=== PATIENT | male | born 1965 | race Caucasian/White ===

== ENCOUNTER 2016-12-24 19:08 | Emergency (ER) | payer MEDICAID ==
--- NOTE | 2016-12-24 19:35 | ED Physician Chart ---
Chief Complaint/HPI - Patient Information Date Seen:: 12/24/16 Time Seen:: 19:11 Chief Complaint:: SUICIDAL IDEATION History of Present Illness:: THIS IS A 51 YO MALE BIB THE [facility] AND PLACED ON A 5150 BECAUSE AT ONE POINT HE TOLD THE EMS THAT HE WANT ED KILL HIMSELF. HIS CLAIMED THAT HE MIGHT HAVE TAKEN SOME OF THE PSYCH MEDS THAT HE USUALLY TAKES. THE PATIENT DENIED ANY PREVIOUS PSYCH CARE. THE DENIES ALL OTHER MEDICAL PROBLEMS. Allergies:: Allergies Allergy/AdvReac Type Severity Reaction Status Date / Time No Known Allergies Allergy Verified 12/24/16 19:17 THIS IS A [age] BIB [facility] AND EMS WITH A STORY OF HIM AT FIRST SAYING HE WAS SUICIDAL AND LATER DENIES BEING SUICIDAL. HE CLAIMS THAT HE TOOK SEVERAL MEDS AND HIS STATES THAT HE DID NOT. THE PATIENT DENIES HAVING PSYCH PROBLEMS IN THE PAST. HE DENIES ALL MEDICAL PROBLEMS. Vitals:: Vital Signs - 8 hr 12/24/16 19:10 Temp 98.1 F HR 71 RR 18 BP 171/109 O2 Sat % 94 Historian:: Patient, EMS Review:: Nurse's Note Reviewed Review of Systems - Review of Systems General/Constitutional: No fever, No chills, No weight loss, No weakness, No diaphoresis, No edema, No loss of appetite, Other (NOT ABLE TO GIVE A REVIEW OF SYSTEMS.) Skin: No skin lesions, No rash, No bruising Head: No headache, No light-headedness Eyes: No loss of vision, No pain, No diplopia ENT: No earache, No nasal drainage, No sore throat, No tinnitus Neck: No neck pain, No swelling, No thyromegaly, No stiffness, No mass noted Cardio Vascular: No chest pain, No palpitations, No PND, No orthopnea, No edema Pulmonary: No SOB, No cough, No sputum, No wheezing GI: No nausea, No vomiting, No diarrhea, No pain, No melena, No hematochezia, No constipation, No hematemesis G/U: No dysuria, No frequency, No hematuria Musculoskeletal: No bone or joint pain, No back pain, No muscle pain Endocrine: No polyuria, No polydipsia Psychiatric: No prior psych history, No depression, No anxiety, No suicidal ideation Hematopoietic: No bruising, No lymphadenopathy Allergic/Immuno: No urticaria, No angioedema Neurological: No syncope, No focal symptoms, No weakness, No paresthesia, No headache, No seizure, No dizziness, No confusion, No vertigo Past Medical History - Past Medical History Obtainable: Yes (HISTORY NOT RELIABLE) Family History: None Social History: Non Smoker, No Alcohol, No Drug Use Surgical History: None Psychiatricy History: Other (HE TAKES PSYCH MEDS BUT DENIES ANY PREVIOUS CARE.) Family Medical History - Family Member Mother History Unknown: Yes Physical Exam - Physical Examination General/Constitutional: Awake, Well-developed, well-nourished, Alert, No distress, GCS 15, Non-toxic appearing, Ambulatory Head: Atraumatic Eyes: Lids, conjuctiva normal, PERRL, EOMI Skin: Nl inspection, No rash, No skin lesions, No ecchymosis, Well hydrated, No lymphadenopathy ENMT: External ears, nose nl, Nasal exam nl, Lips, teeth, gums nl Neck: Nontender, Full ROM w/o pain, No JVD, No nuchal rigidity, No bruit, No mass, No stridor Respiratory: Nl effort/Exclusion, Clear to Auscultation, No Wheeze/Rhonchi/Rales Cardio Vascular: RRR, No murmur, gallop, rubs, NL S1 S2 GI: No tenderness/rebounding/guarding, No organomegaly, No hernia, Normal BS's, Nondistended, No mass/bruits, No McBurney tenderness : No CVA tenderness Extremities: No tenderness or effusion, Full ROM, normal strength in all extremities, No edema, Normal digits & nails Neuro/Psych: Alert/oriented, DTR's symmetric, Normal sensory exam, Normal motor strength, Judgement/insight normal, Mood normal, Normal gait, No focal deficits Misc: normal gait, Normal back, No paraspinal tenderness Labs/Radiology/EKG Results - Lab Results Results: Abnormal Lab Results 12/24/16 12/24/16 12/24/16 19:37 19:37 19:37 WBC 8.8 RBC 5.60 Hgb 16.7 Hct 49.1 H MCV 87.6 MCH 29.9 MCHC Differential 34.1 RDW 12.3 Plt Count 139 L MPV 10.8 Neutrophils % 58.2 Lymphocytes % 31.8 Monocytes % 7.0 Eosinophils % 2.7 Basophils % 0.3 Sodium 139 Potassium 3.6 Chloride 108 H Carbon Dioxide 24.7 Anion Gap 9.9 BUN 19 Creatinine 1.1 Est GFR ( Amer) > 60.0 Est GFR (Non-Af Amer) > 60.0 BUN/Creatinine Ratio 17.3 Glucose 123 H Calcium 9.7 Total Bilirubin 0.4 AST 20 ALT 22 Alkaline Phosphatase 81 Troponin I 0.02 Total Protein 7.5 Albumin 4.3 Globulin 3.2 Albumin/Globulin Ratio 1.3 TSH Urine Source Urine Color Urine Clarity Urine pH Ur Specific [place] Urine Protein Urine Glucose (UA) Urine Ketones Urine Blood Urine Nitrate Urine Bilirubin Urine Urobilinogen Ur Leukocyte Esterase Urine RBC Urine WBC Ur Epithelial Cells Urine Bacteria Salicylates Urine Opiates Screen Urine Methadone Screen Acetaminophen Ur Barbiturates Screen Ur Tricyclics Screen Ur Phencyclidine Scrn Amphetamines Screen U Methamphetamines Scrn U Benzodiazepines Scrn U Cocaine Metab Screen U Cannabinoids Screen Ethyl Alcohol 12/24/16 12/24/16 12/24/16 19:37 19:37 19:37 WBC RBC Hgb Hct MCV MCH MCHC Differential RDW Plt Count MPV Neutrophils % Lymphocytes % Monocytes % Eosinophils % Basophils % Sodium Potassium Chloride Carbon Dioxide Anion Gap BUN Creatinine Est GFR ( Amer) Est GFR (Non-Af Amer) BUN/Creatinine Ratio Glucose Calcium Total Bilirubin AST ALT Alkaline Phosphatase Troponin I Total Protein Albumin Globulin Albumin/Globulin Ratio TSH 1.32 Urine Source Urine Color Urine Clarity Urine pH Ur Specific [place] Urine Protein Urine Glucose (UA) Urine Ketones Urine Blood Urine Nitrate Urine Bilirubin Urine Urobilinogen Ur Leukocyte Esterase Urine RBC Urine WBC Ur Epithelial Cells Urine Bacteria Salicylates < 25.0 L Urine Opiates Screen Urine Methadone Screen Acetaminophen Ur Barbiturates Screen Ur Tricyclics Screen Ur Phencyclidine Scrn Amphetamines Screen U Methamphetamines Scrn U Benzodiazepines Scrn U Cocaine Metab Screen U Cannabinoids Screen Ethyl Alcohol < 10 12/24/16 12/24/16 12/24/16 19:37 20:00 20:00 WBC RBC Hgb Hct MCV MCH MCHC Differential RDW Plt Count MPV Neutrophils % Lymphocytes % Monocytes % Eosinophils % Basophils % Sodium Potassium Chloride Carbon Dioxide Anion Gap BUN Creatinine Est GFR ( Amer) Est GFR (Non-Af Amer) BUN/Creatinine Ratio Glucose Calcium Total Bilirubin AST ALT Alkaline Phosphatase Troponin I Total Protein Albumin Globulin Albumin/Globulin Ratio TSH Urine Source CLEAN C Urine Color YELLOW Urine Clarity CLEAR Urine pH 6.0 Ur Specific [place] 1.025 Urine Protein NEGATIVE Urine Glucose (UA) NEGATIVE Urine Ketones NEGATIVE Urine Blood NEGATIVE Urine Nitrate NEGATIVE Urine Bilirubin NEGATIVE Urine Urobilinogen 0.2 Ur Leukocyte Esterase NEGATIVE Urine RBC NONE SEEN Urine WBC NONE SEEN Ur Epithelial Cells NONE SEEN Urine Bacteria NONE SEEN Salicylates Urine Opiates Screen NEGATIVE Urine Methadone Screen NEGATIVE Acetaminophen < 10.0 L Ur Barbiturates Screen NEGATIVE Ur Tricyclics Screen NEGATIVE Ur Phencyclidine Scrn NEGATIVE Amphetamines Screen NEGATIVE U Methamphetamines Scrn NEGATIVE U Benzodiazepines Scrn NEGATIVE U Cocaine Metab Screen NEGATIVE U Cannabinoids Screen NEGATIVE Ethyl Alcohol Assessment - Assessment General Assessment: PSYCHOSIS SUICIDAL IDEATION ED Septic Shock - . Is Septic Shock (SBP<90, OR Lactate>4 mmol\L) present?: No - <6hrs of presentation: Vital Signs: Vital Signs - 8 hr 12/24/16 19:10 Temp 98.1 F HR 71 RR 18 BP 171/109 O2 Sat % 94 Reassessment (Disposition) - Reassessment Reassessment Condition:: Unchanged - Diagnosis Diagnosis:: SUICIDAL IDEATION - Aftercare/Follow up Instructions Notes:: THIS PATIENT IS CLEARED FOR A PSYCH EVALUATION. - Patient Disposition Discharge/Transfer:: TRANSFERED TO A PSYCH HOSP Condition at Disposition:: Unchanged ED Discharge Plan - Patient Disposition Admit/Discharge/Transfer: XFR/ANOTHER INPT PSYCH HOSP Condition at Disposition: Unchanged Instructions: Psychosis
[2016-12-24 19:48] LABS: % BASOPHILS 0.3 % (0.0-2.0); % EOSINOPHILS 2.7 % (0.0-5.0); % LYMPHOCYTES 31.8 % (20.0-50.0); % NEUTROPHILS 58.2 % (40.0-80.0); HEMATOCRIT 49.1 % (39.0-49.0); HEMOGLOBIN 16.7 gm/dL (13.2-17.3); MEAN CELL VOLUME 87.6 fl (80-99); MEAN CORPUSCULAR HEMOGLOBIN 29.9 pg (26.0-30.0); MEAN CORPUSCULAR HGB CONC 34.1 pg (28.0-36.0); MEAN PLATELET VOLUME 10.8 fl; NEUTROPHILE ABSOLUTE 5.2 Th/cmm (1.8-8.0); PLATELET COUNT 139 Th/cmm (150-400); RED CELL DISTRIBUTION WIDTH 12.3 % (11.5-20.0); WHITE BLOOD COUNT 8.8 Th/cmm (4.8-10.8)
[2016-12-24 20:04] LABS: ALB/GLOB RATIO 1.3 (1.0-1.8); ALKALINE PHOSPHATASE 81 U/L (34-104); ANION GAP 9.9 (7.0-16.0); BILIRUBIN,TOTAL 0.4 mg/dL (0.3-1.0); BUN - UREA NITROGEN 19 mg/dL (7-25); BUN/CREATININE RATIO 17.3; CALCIUM SERUM 9.7 mg/dL (8.6-10.3); CARBON DIOXIDE 24.7 mEq/L (21.0-31.0); CHLORIDE 108 mEq/L (98-107); CREATININE - SERUM 1.1 mg/dL (0.7-1.3); GLUCOSE 123 mg/dL (70-105); POTASSIUM SERUM 3.6 mEq/L (3.5-5.1); SGOT 20 U/L (13-39); SGPT/ALT 22 U/L (7-52); SODIUM SERUM 139 mEq/L (136-145)
[2016-12-24 21:02] LABS: URINE BILIRUBIN NEGATIVE (NEGATIVE); URINE BLOOD NEGATIVE (NEGATIVE); URINE GLUCOSE (UA) NEGATIVE (NEGATIVE); URINE KETONE NEGATIVE (NEGATIVE); URINE PROTEIN NEGATIVE (NEGATIVE); URINE UROBILINOGEN 0.2 E.U./dL (0.2 - 1.0)
[2016-12-24 21:09] LABS: URINE COLOR YELLOW
[2016-12-24 21:11] LABS: URINE BACTERIA NONE SEEN /hpf (NONE SEEN); URINE EPITHELIAL CELLS NONE SEEN /lpf (FEW); URINE RBC NONE SEEN /hpf (0-5); URINE WBC NONE SEEN /hpf (0-5)
[2016-12-24 21:14] LABS: AMPHETAMINE URINE NEGATIVE (NEGATIVE); BARBITURATES URINE NEGATIVE (NEGATIVE); METHADONE URINE NEGATIVE (NEGATIVE)
--- NOTE | 2016-12-25 16:42 | General Progress Note ---
Subjective - Review of Systems Service Date: 12/25/16 Events since last encounter: pt has been stable and cooperative today. he is being held on psych hold from police from last nt. he is cooperative. he says he will do what he needs to. he is saying he doesnt feel suicidal now but last nt was telling his he would take a drug OD. they have been 25 yrs and seems the marriage is breaking up. he does not feel respected by . he has family in the area. no physical complaints. PE VSS, rrr no m. lungs cta b. mobile. alert, calm. pt was awaiting maite jones to eval him.. plan has been made to transfer pt to [facility]. dx; depression / suicidal ideation plan transfer cond ; guarded Objective - Results Result Diagrams: 12/24/16 19:37 12/24/16 19:37 Recent Labs: Laboratory Last Values WBC 8.8 Th/cmm (4.8-10.8) 12/24/16 19:37 RBC 5.60 Mil/cmm (4.30-5.70) 12/24/16 19:37 Hgb 16.7 gm/dL (13.2-17.3) 12/24/16 19:37 Hct 49.1 % (39.0-49.0) H 12/24/16 19:37 MCV 87.6 fl (80-99) 12/24/16 19:37 MCH 29.9 pg (26.0-30.0) 12/24/16 19:37 MCHC Differential 34.1 pg (28.0-36.0) 12/24/16 19:37 RDW 12.3 % (11.5-20.0) 12/24/16 19:37 Plt Count 139 Th/cmm (150-400) L 12/24/16 19:37 MPV 10.8 fl 12/24/16 19:37 Neutrophils % 58.2 % (40.0-80.0) 12/24/16 19:37 Lymphocytes % 31.8 % (20.0-50.0) 12/24/16 19:37 Monocytes % 7.0 % (2.0-10.0) 12/24/16 19:37 Eosinophils % 2.7 % (0.0-5.0) 12/24/16 19:37 Basophils % 0.3 % (0.0-2.0) 12/24/16 19:37 Sodium 139 mEq/L (136-145) 12/24/16 19:37 Potassium 3.6 mEq/L (3.5-5.1) 12/24/16 19:37 Chloride 108 mEq/L (98-107) H 12/24/16 19:37 Carbon Dioxide 24.7 mEq/L (21.0-31.0) 12/24/16 19:37 Anion Gap 9.9 (7.0-16.0) 12/24/16 19:37 BUN 19 mg/dL (7-25) 12/24/16 19:37 Creatinine 1.1 mg/dL (0.7-1.3) 12/24/16 19:37 Est GFR ( Amer) > 60.0 ml/min (>90) 12/24/16 19:37 Est GFR (Non-Af Amer) > 60.0 ml/min 12/24/16 19:37 BUN/Creatinine Ratio 17.3 12/24/16 19:37 Glucose 123 mg/dL (70-105) H 12/24/16 19:37 Calcium 9.7 mg/dL (8.6-10.3) 12/24/16 19:37 Total Bilirubin 0.4 mg/dL (0.3-1.0) 12/24/16 19:37 AST 20 U/L (13-39) 12/24/16 19:37 ALT 22 U/L (7-52) 12/24/16 19:37 Alkaline Phosphatase 81 U/L (34-104) 12/24/16 19:37 Troponin I 0.02 ng/mL (0.01-0.05) 12/24/16 19:37 Total Protein 7.5 gm/dL (6.0-8.3) 12/24/16 19:37 Albumin 4.3 gm/dL (4.2-5.5) 12/24/16 19:37 Globulin 3.2 gm/dL 12/24/16 19:37 Albumin/Globulin Ratio 1.3 (1.0-1.8) 12/24/16 19:37 TSH 1.32 uIU/ml (0.34-5.60) 12/24/16 19:37 Urine Source CLEAN C 12/24/16 20:00 Urine Color YELLOW 12/24/16 20:00 Urine Clarity CLEAR (CLEAR) 12/24/16 20:00 Urine pH 6.0 (4.6 - 8.0) 12/24/16 20:00 Ur Specific [place] 1.025 (1.005-1.030) 12/24/16 20:00 Urine Protein NEGATIVE mg/dL (NEGATIVE) 12/24/16 20:00 Urine Glucose (UA) NEGATIVE mg/dL (NEGATIVE) 12/24/16 20:00 Urine Ketones NEGATIVE mg/dL (NEGATIVE) 12/24/16 20:00 Urine Blood NEGATIVE (NEGATIVE) 12/24/16 20:00 Urine Nitrate NEGATIVE (NEGATIVE) 12/24/16 20:00 Urine Bilirubin NEGATIVE (NEGATIVE) 12/24/16 20:00 Urine Urobilinogen 0.2 E.U./dL (0.2 - 1.0) 12/24/16 20:00 Ur Leukocyte Esterase NEGATIVE (NEGATIVE) 12/24/16 20:00 Urine RBC NONE SEEN /hpf (0-5) 12/24/16 20:00 Urine WBC NONE SEEN /hpf (0-5) 12/24/16 20:00 Ur Epithelial Cells NONE SEEN /lpf (FEW) 12/24/16 20:00 Urine Bacteria NONE SEEN /hpf (NONE SEEN) 12/24/16 20:00 Salicylates < 25.0 mg/L (30.0-100.0) L 12/24/16 19:37 Urine Opiates Screen NEGATIVE (NEGATIVE) 12/24/16 20:00 Urine Methadone Screen NEGATIVE (NEGATIVE) 12/24/16 20:00 Acetaminophen < 10.0 ug/mL (10.0-30.0) L 12/24/16 19:37 Ur Barbiturates Screen NEGATIVE (NEGATIVE) 12/24/16 20:00 Ur Tricyclics Screen NEGATIVE (NEGATIVE) 12/24/16 20:00 Ur Phencyclidine Scrn NEGATIVE (NEGATIVE) 12/24/16 20:00 Amphetamines Screen NEGATIVE (NEGATIVE) 12/24/16 20:00 U Methamphetamines Scrn NEGATIVE (NEGATIVE) 12/24/16 20:00 U Benzodiazepines Scrn NEGATIVE (NEGATIVE) 12/24/16 20:00 U Cocaine Metab Screen NEGATIVE (NEGATIVE) 12/24/16 20:00 U Cannabinoids Screen NEGATIVE (NEGATIVE) 12/24/16 20:00 Ethyl Alcohol < 10 mg/dL (0-10) 12/24/16 19:37 - Physical Exam Vitals and I&O: Vital Signs Temp 98.2 F 12/25/16 06:00 Pulse 67 12/25/16 10:52 Resp 14 12/25/16 10:52 BP 133/68 12/25/16 10:52 Pulse Ox 97 12/25/16 10:52 Intake & Output 12/24/16 12/25/16 12/25/16 18:59 06:59 18:59 Weight (lbs) 95.254 kg
== END 2016-12-25 21:45 ==
LOC: ER 19:08
DX: R45.851 Suicidal ideations (principal)
CPT/HCPCS: 36415-UA; 80053-TC; 80307; 80320-TC; 80329-TC; 81001-TC; 84443-TC; 84484-TC; 85025-TC